=== PATIENT | female | born 1970 | race African-American/Black ===

== ENCOUNTER 2019-08-19 08:47 | Day surgery (SDC) | payer BC ==
[~2019-08-19] VITALS: Ht 160 cm; Wt 89.4 kg
[~2019-08-19 08:47] MED LIST: ATIVAN1 MG PO; BACTRIM DS1 TAB PO; BUPROPION HCL150 M2 PO; DICLOFENAC SODI75 MG PO; HYDROCHLOROT25 MG PO; K-DUR/KLOR-CON10 MEQ PO; LORTAB 5-325 MG1 TAB PO; LORTAB5 PO; LOSARTAN POTASS50 MG PO; NORVASC10 MG OR; ST JOSEPH75 MG OR; TOPROL XL PO; ZESTRIL/PRI20 MG/TAB PO; ZESTRIL/PRINIVI20 MG OR; ZOFRAN ODT4 MG SL
[2019-08-19 12:19] VITALS: BP 110/63
== END 2019-08-19 12:40 | disposition home or self-care (01) | DRG 385 ==
LOC: ENDO 08:47 → ORM 10:45 → ENDO 12:40
PROVIDERS: ATTEND Surgery
PROC: 0DBL8ZX Excision of Transverse Colon, Via Natural or Artificial Opening Endoscopic, Diagnostic (ICD-10-PCS; principal; 2019-08-19)
PROC: 0DBN8ZX Excision of Sigmoid Colon, Via Natural or Artificial Opening Endoscopic, Diagnostic (ICD-10-PCS; 2019-08-19)
PROC: 0DB78ZX Excision of Stomach, Pylorus, Via Natural or Artificial Opening Endoscopic, Diagnostic (ICD-10-PCS; 2019-08-19)
DX: K50.111 Crohn's disease of large intestine with rectal bleeding (principal); K25.4 Chronic or unspecified gastric ulcer with hemorrhage; K29.71 Gastritis, unspecified, with bleeding; D12.3 Benign neoplasm of transverse colon; I10 Essential (primary) hypertension; Z11.59 Encounter for screening for other viral diseases

== ENCOUNTER 2022-11-26 07:43 | Day surgery (SDC) | payer BC ==
[~2022-11-26] VITALS: Ht 160 cm; Wt 93.4 kg
[~2022-11-26 07:43] MED LIST changes: +HYZAAR1 TA1 PO
[2022-11-26 11:11] VITALS: BP 138/84
== END 2022-11-26 10:56 | disposition home or self-care (01) | DRG 951 ==
LOC: ORM 07:43
PROVIDERS: ATTEND Surgery
PROC: 0DBL8ZX Excision of Transverse Colon, Via Natural or Artificial Opening Endoscopic, Diagnostic (ICD-10-PCS; principal; 2022-11-26)
DX: Z12.11 Encounter for screening for malignant neoplasm of colon (principal); D12.3 Benign neoplasm of transverse colon; K64.8 Other hemorrhoids; I10 Essential (primary) hypertension; Z86.010 Personal history of colon polyps

== ENCOUNTER 2023-11-19 07:36 | Day surgery (SDC) | payer BC ==
[~2023-11-19] VITALS: Ht 160 cm; Wt 93.4 kg
[2023-11-19] MEDS ORDERED: XANAX0.5 MG PO (07:59)
[2023-11-19] MEDS ORDERED: SODIUM CHLORIDE 0.9% 10 ML SYR ONE (08:01)
[2023-11-19] MEDS ORDERED: TRIAMCINOLONE ACETONIDE 40 MG/ML ML ONE (08:25)
[2023-11-19] MEDS ORDERED: BUPIVACAINE HCL PF 0.5 % 50 MG/10 ML SDV ONE (08:25)
[2023-11-19] MEDS ORDERED: LIDOCAINE HCL 1% (10MG/ML) 100 MG/10 ML MDV ONE (08:25)
[2023-11-19] MEDS ORDERED: Iopamidol 61% 5 ML SYR IV ONE (08:26)
[2023-11-19 09:06] VITALS: BP 150/94
== END 2023-11-19 09:02 | disposition home or self-care (01) | DRG 556 ==
LOC: ORM 07:36
PROVIDERS: ATTEND Student in an Organized Health Care Education/Training Program
DX: M25.511 Pain in right shoulder (principal); M75.51 Bursitis of right shoulder; G89.29 Other chronic pain; M75.81 Other shoulder lesions, right shoulder; M54.9 Dorsalgia, unspecified
CPT/HCPCS: J3301; Q9967